=== PATIENT | female | born 1945 ===

== ENCOUNTER → 2018-01-22 | Day surgery (SDC) | payer MEDICARE, BC ==
[2018-01-21 11:03] VITALS: BMI 21.3
[~2018-01-22] MED LIST: Dexamethasone 20 MG/5 ML VIAL ONE; Fentanyl 100 MCG/2 ML VIAL ONE; Glycopyrrolate 0.2 MG/ML 5 ML SYRINGE ONE; Lidocaine 1% PF 5 ML VIAL ONE; Lidocaine 1% w/Epinephrine 1:100K 30 ML VIAL ONE; Midazolam HCl 2 mg/2 ml Vial ONE; Ondansetron HCl/PF 4 MG/2 ML Vial ONE; Oxymetazoline HCl 0.05% ( 15 ML ) ONE; PROPOFOL 200 MG/20 ML VIAL ONE; Succinylcholine Chloride 20 MG/ML 10 ml SYRINGE FS ONE
[2018-01-22 13:44] LABS: Hemoglobin 12.5 g/dL (12.0-16.0)
[2018-01-22 14:06] LABS: Anion Gap 14 mmol/L (10-20); BUN (Urea Nitrogen) 10 mg/dL (9.8-20.1); Calc. Creatinine Clearance 61 mL/min (70-130); Calcium 9.7 mg/dL (7.8-10.44); Carbon Dioxide 25 mmol/L (23-31); Chloride 96 mmol/L (98-107); Estimated GFR-MDRD 72; Glucose 100 mg/dL (83-110); Potassium 3.9 mmol/L (3.5-5.1); Sodium 131 mmol/L (136-145)
--- NOTE | 2018-01-23 09:13 | OP ---
PREOPERATIVE DIAGNOSES: Obstructive sleep apnea, obstructive uvular hypertrophy, tonsillar hypertrop hy, and obstructive inferior turbinate hypertrophy. PROCEDURES PERFORMED: 1. Tonsillectomy. 2. Uvulopalatopharyngoplasty. 3. Bilateral nasal endoscopy with submucosal resection of the inferior turbinate. TITLE OF PROCEDURE: Tonsillectomy. PROCEDURE IN DETAIL: After consent was obtained, the patient was identified, brought to the operatin g room, and placed on the operating table in the supine position. General endotracheal anesthesia an d intravenous access was obtained and we proceeded with positioning the patient for oropharyngeal gomez kayden. Oropharyngeal exposure was obtained with a Sadiq-Al mouth gag after a head drape was placed and secured with a towel clip. The Sadiq-Al mouth gag was then suspended from the Diana tray and palatal elevation was achieved with a red rubber catheter. The right tonsil was addressed first. We used a curved Allis to grasp the tonsil and retract it medially as an anterior pillar incision was m dee with a #12 blade. The retrotonsillar fascial plane was then established and blunt dissection was performed with the suction cautery. Blood vessels were anticipated, identified, and cauterized as t hey were encountered. Ultimately, dissection was carried to the posterior tonsillar pillar mucosa wh ich was incised hemostatically, as well as the base of tongue connection. The tonsil was then passed off as a specimen and bleeding points within the tonsillar bed were cauter ized under direct visualization. We subsequently turned our attention to the contralateral side, whe re using a similar technique, a near identical procedure was performed. Again, the tonsil was graspe d and retracted medially with a curved Allis as an anterior pillar incision was made with a #12 blade . The retrotonsillar fascial plane was established and while the anterior pillar was retracted media lly, the hemostatic blunt dissection of the tonsil with a suction cautery was performed with blood ve ssels anticipated, identified, and cauterized as they were encountered. Again, dissection continued to the base of tongue and posterior tonsillar pillar mucosa which was incised in a hemostatic fashion . The tonsillar beds were then carefully inspected and bleeding points were identified and cauterize d with a suction cautery. After this portion of the procedure, hemostasis was completely obtained. The patient's oral cavity was copiously irrigated with iced saline and subsequently suctioned. We th en used the red rubber catheter to suction the gastric contents. TITLE OF PROCEDURE: Uvulopalatopharygoplasty PROCEDURE IN DETAIL: We turned our attention to the oropharynx. A shoulder roll was placed, and the patient was positioned for oropharyngeal surgery. A Sadiq-Al mouth gag was used to obtain exposu re to the oropharynx. We then proceeded with a standard tonsillectomy. The tonsil was grasped and r etracted medially as an anterior pillar incision was performed. We then established the retrotonsill ar fascial plane and dissected along this plane with the suction cautery. Great care was made not to violate or injure any of the surrounding oropharyngeal mucosa. Ultimately, the posterior tonsillar pillar mucosa was incised, and the tonsil was removed. Identical technique was used on the contralat eral side such that both sides of the oropharynx underwent a hemostatic tonsillectomy. Bleeding poin ts were then examined, identified, and cauterized under direct visualization. We then turned our att ention to the soft palate where the uvula was grasped, and vertical soft palate incisions were create d on both sides of the large uvula. We then performed a horizontal incision, thus transecting the uv amanda from the surrounding soft palate. We then performed crescentic excisions of the anterior tonsill ar pillar mucosa. The posterior pillar mucosa was then reapproximated to the anterior pillar mucosa with 3-0 interrupted Vicryl sutures. This was done throughout the entirety of the oropharynx such th at minimal tension was left on the posterior oropharyngeal mucosa. Ultimately, the nasal cavity, ora l cavity, oropharynx, and nasopharynx were copiously irrigated, suctioned, and all bleeding was contr olled. TITLE OF PROCEDURE: Bilateral nasal endoscopy with submucosal resection of the inferior turbinate. PROCEDURE IN DETAIL: Consent had already been obtained, notifying the patient of the possibility of additional infections, bleeding, brain injury, and eye/orbital injury. The patient was then positio sathish, prepped and draped for endoscopic sinus surgery. Nasal preparation included trimming nasal vest ibular hairs and spraying in topical Afrin. We then placed Afrin topical solution on nasal pledgets and strategically located them intranasally. The perinasal mucosa was injected with 1% lidocaine wit h 1:100,000 epinephrine in the submucoperichondrial plane of the septum, lateral nasal wall, and ante rior to the uncinate. The patient was then prepped and draped in a sterile fashion and positioned fo r endoscopic sinus surgery. The inferior turbinates were visualized with a 0-degree endoscope and outfractured with a Aditya eleva tor. The inferior medial aspect was cauterized with the electrocautery. Hemostasis was obtained. A fter adequate airway was established, we turned our attention to the contralateral side and used a si milar procedure. Again, a Aditya elevator was used to outfracture inferior turbinates under endoscopi c visualization. With a suction cautery, the free inferior medial aspect was cauterized under direct visualization along the length of the inferior turbinate. At the completion of the case, Rice keel splints were placed in the ethmoid cavities after the ethmoi dectomy. There were no complications. The patient tolerated the procedure well and was discharged t o the recovery room in stable condition prior to return to the preoperative Day Stay with [facility]. Prescriptions for pain medication and antibiotics were provided. The patient received intramuscular Depo-Medrol during the case.
== END ==
LOC: SDC 12:57
PROVIDERS: ATTEND Specialist
PROC: 0CTNXZZ Resection of Uvula, External Approach (ICD-10-PCS; principal; 2018-01-22)
PROC: 0CTPXZZ Resection of Tonsils, External Approach (ICD-10-PCS; 2018-01-22)
DX: J35.1 Hypertrophy of tonsils (principal); J34.3 Hypertrophy of nasal turbinates; G47.33 Obstructive sleep apnea (adult) (pediatric); K13.79 Other lesions of oral mucosa; E78.00 Pure hypercholesterolemia, unspecified; I10 Essential (primary) hypertension; Z79.82 Long term (current) use of aspirin; Z79.899 Other long term (current) drug therapy
CPT/HCPCS: 36415; 80048; 85014; 85018; 93005; 93010; J0131; J1100; J2001; J2250; J2405; J2704; J3010